=== PATIENT | female | born 1975 | race Caucasian/White ===

== ENCOUNTER 2021-10-24 10:14 | Emergency (ER) | payer OTHER, SELFPAY ==
[2021-10-24] VITALS (16 sets, daily range): BP systolic 146–158; BP diastolic 85–99; PULSE 87–119; RESP 16–20; TEMP 36.7; O2SAT 98–100
--- NOTE | ~2021-10-24 | US_ITS ---
EXAMINATION: US pelvic complete w TV DATE: 10/24/2021 15:18 INDICATION: Right-sided pelvic pain TECHNIQUE: Multiple transabdominal and endovaginal sonographic images of the pelvis were obtained. COMPARISON: None. FINDINGS: The uterus measures 8.1 x 5.4 x 5.9 cm. There is a 1.2 cm nabothian cyst of the cervix. A 1 .9 x 1.8 cm isoechoic mass of the anterior uterine body has the appearance of a subserosal fibroid. T he endometrial complex measures 7 mm. The right ovary measures 2.7 x 1.9 x 1.6 cm. The left ovary estefanía sures 3.5 x 3.2 x 1.8 cm. There is normal vascular flow in the ovaries. There is no free fluid in the pelvis. IMPRESSION: 1. No sonographic correlate for the patient's symptoms. Reviewed, dictated and finalized at location B. 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
--- NOTE | ~2021-10-24 | CT_ITS ---
EXAMINATION: CT abdomen pelvis w con DATE: 10/24/2021 13:05 INDICATION: Right lower quadrant abdominal pain. Nausea. TECHNIQUE: Computed tomography (CT) of the abdomen and pelvis was performed with 100 mL Omnipaque 350 intravenous contrast. Automated exposure control and iterative reconstruction technique were employe d. The dose-length product was 342.40 mGy-cm. COMPARISON: None. FINDINGS: The visualized portions of the lung bases demonstrate mild atelectasis. No pleural effusion . The heart size is normal. No pericardial effusion. The liver, gallbladder, spleen, pancreas, and ri ght adrenal gland are normal. There is a 10 mm mass in left adrenal gland measuring soft tissue atten uation. The right kidney is normal. There is a 10 mm mass of fat in left kidney, consistent with an a ngiomyolipoma. There are no dilated loops of bowel. The appendix is normal. There are no pathological ly enlarged lymph nodes. There is physiologic fluid in the pelvis. There is mild thoracolumbar spondy losis. IMPRESSION: 1. 10 mm left adrenal mass. In the absence of known malignancy, this finding is likely an adenoma. Reviewed, dictated and finalized at location A. 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
[2021-10-24 12:31] LABS: Basophils Absolute Auto 0.1 K/mm3 (0.0-0.1); Basophils Percent Auto 0.9 % (0.2-1.2); Eosinophils Absolute Auto 0.3 K/mm3 (0-0.3); Eosinophils Percent Auto 2.6 % (0-4.4); Hematocrit 37.8 % (37.0-47.0); Hemoglobin 11.6 g/dL (12.0-15.0); Immature Granulocyte Absolute 0.04 K/mm3 (0.00-0.031); Immature Granulocyte Percent A 0.3 % (0-0.5); Lymphocytes Absolute Auto 2.03 K/mm3 (0.9-3.2); Lymphocytes Percent Auto 17.6 % (18.3-44.2); Mean Corpuscular HGB Conc 30.7 g/dl (32-36); Mean Corpuscular Hemoglobin 22.9 pg (26-34); Mean Corpuscular Volume 74.7 fl (80-100); Mean Platelet Volume 8.6 fl (7.4-10.4); Monocytes Absolute Auto 0.8 K/mm3 (0.1-0.6); Monocytes Percent Auto 6.9 % (2.6-8.5); Neutrophils Absolute Auto 8.3 K/mm3 (1.3-6.7); Neutrophils Percent Auto 71.7 % (45.5-73.1); Platelet Count Result 621 k/mm3 (150-375); Red Blood Count 5.06 M/mm3 (4.2-5.4); Red Cell Distribution Width 17.9 % (11.5-14.5); White Blood Count 11.5 K/mm3 (4.5-10.0)
[2021-10-24 12:36] LABS: Add Urine Microscopic? YES; Appearance Urine Clear (Clear); Bilirubin Urine Negative (Negative); Blood Urine Negative (Negative); Color Urine Yellow (Yellow); Glucose Urine UA 3+ mg/dL (Negative); Ketones Urine Trace mg/dL (Negative); Leukocyte Esterase Ur Negative LEU/UL (Negative); Nitrate Urine Negative (Negative); Protein Urine Negative (Negative); RBC Urine 0-2 /hpf (0-2); Squamous Epithelial Cell Urine Rare /hpf (Few); Urobilinogen Urine Negative mg/dL (<2.0); WBC Urine 0-3 /hpf
[2021-10-24 12:40] LABS: Specific Grav Ur 1.036 (1.001-1.035)
[2021-10-24 12:49] LABS: Alanine Aminotransferase 22 U/L (4-35); Albumin Level 5.1 g/dL (3.5-5.1); Alkaline Phosphatase 71 U/L (38-126); Anion Gap 12 mmol/L (8-16); Aspartate Amino Transferase 30 U/L (14-36); Blood Urea Nitrogen 13 mg/dL (7-17); Calcium 11.1 mg/dL (8.4-10.2); Carbon Dioxide 23 mmol/L (22-30); Chloride 105 mmol/L (98-107); Estimated CRCL calculation 105 ml/min; Estimated Glomerular Filt Rate > 60; Glucose 117 mg/dL (65-110); Lipase 79 U/L (23-300); Potassium 3.9 mmol/L (3.4-5.0); Sodium 140 mmol/L (137-145)
[2021-10-24] MEDS: SODIUM CHLORIDE 0.9% IV 1,000 ML 999 ML IV CONT (13:11)
[2021-10-24] MEDS: MORPHINE SULFATE (*CRX) 4 MG/ML INJ IV PUSH (13:12)
[2021-10-24] MEDS: ONDANSETRON INJ 4 MG/2 ML VIAL IV PUSH (13:12)
[2021-10-24] MEDS: KETOROLAC 30 MG/ML VIAL (*BKC) IV PUSH (16:23)
--- NOTE | 2021-10-24 17:30 | ED.GENADULT ---
HPI - General Adult General Chief complaint: Abdominal Pain Stated complaint: abd pain Time Seen by Provider: 10/24/21 12:05 Source: RN notes reviewed History of Present Illness HPI narrative: Patient presents emergency department from home for abdominal pain. Patient states that pain began yesterday is located in the right mid abdomen and does not radiate. Pain is described as sharp and stabbing does not radiate is associated with nausea. She denies any fevers or chills chest pain shortness of breath diarrhea or any other symptoms states she is not taking medication for the symptoms this morning Related Data Home Medications Medication Instructions Recorded Confirmed fluticasone propionate 50 1 spray INTRANASAL DAILY 10/10/20 09/18/21 mcg/actuation nasal spray,suspension vitamin B comp and C no.3 15 mg-10 1 cap PO DAILY 01/24/21 09/18/21 mg-50 mg-5 mg-300 mg capsule aspirin 81 mg tablet,delayed 81 mg PO DAILY 09/18/21 09/18/21 release cetirizine 10 mg capsule 10 mg PO DAILY 09/18/21 09/18/21 cholecalciferol (vitamin D3) 125 125 mcg PO DAILY 09/18/21 09/18/21 mcg (5,000 unit) capsule omeprazole magnesium 20 mg 20 mg PO 4XW tablet 09/18/21 09/18/21 tablet,delayed release Allergies Allergy/AdvReac Type Severity Reaction Status Date / Time No Known Allergies Allergy Mild Unverified 06/24/11 19:52 metoprolol Allergy Unknown Verified 03/08/10 07:35 Review of Systems Review of Systems: Gen.: Denies fevers or chills ENT: Denies congestion Respiratory: Denies shortness of breath or cough CV: Denies chest pain or palpitations GI see HPI denies burning, urgency, frequency or hematuria Musculoskeletal: Denies back pain or muscle pain Neuro: Denies numbness, tingling, weakness or focal weakness Skin: Denies rash Except as documented, all other systems reviewed and negative [facility] Past Medical History Medical History Dyslipidemia Hypertension Primary hyperparathyroidism Type 2 diabetes mellitus with hyperglycemia Family History Family History Mother Family history of coronary artery disease Family history of cardiovascular disease Family history of chronic obstructive pulmonary disease Father Diabetes mellitus Family history of gout Hypertension Family history of chronic obstructive pulmonary disease Other Depression Family history of Alzheimer's disease Family history of alcoholism Family history of hearing loss Family history of obesity Family history of thyroid disease Social History Social History Smoking status: Never smoker Second hand tobacco smoke exposure: No Alcohol intake: current Substance use: never Substance use type: does not use Additional living arrangements comments: ( Charles ) son ( smitha ) and mother 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 No clubbing, cyanosis or edema. NEURO: Awake and alert. Following commands, speech normal, no focal deficits SKIN:: Warm, dry. Normal Color PSYCHIATRIC: Normal affect/mood Course Course Emergency Course: Patient continued to have abdominal pain following morphine we will give Toradol Patient states that they are feeling better at this time. States abdominal pain has
== END 2021-10-24 17:59 | disposition home or self-care (01) ==
PROVIDERS: Emergency Provider Emergency Medicine; PCP Nurse Practitioner
DX: R10.9 Unspecified abdominal pain (principal); I10 Essential (primary) hypertension; E11.9 Type 2 diabetes mellitus without complications; E21.0 Primary hyperparathyroidism
CPT/HCPCS: 36415; 74177; 76830; 76856; 80053; 81001; 81025; 83690; 85025; 96361; 96374; 96375; 99284; J1885; J2270; J2405; J7030; Q9967

== ENCOUNTER 2021-11-02 09:08 | Outpatient (CLI) | payer OTHER, SELFPAY ==
--- NOTE | ~2021-11-02 | US_ITS ---
US abdomen limited INDICATION: Abdomen pain. PROCEDURE: Realtime right upper abdominal ultrasound. COMPARISON: No prior studies for comparison. FINDINGS: The pancreas is normal without focal mass or pancreatic ductal dilation. Liver echotexture is normal without focal mass or intrahepatic biliary dilatation. There is normal directional flow i n the portal vein. The gallbladder is normal without stones, gallbladder wall thickening or pericholecystic fluid. Comm on bile duct measures 4.7 mm. No sonographic Crabtree's sign. IMPRESSION: 1: Normal limited abdominal ultrasound. Reviewed, dictated and finalized at location B.
== END 2021-11-02 09:09 | disposition home or self-care (01) ==
PROVIDERS: PCP Nurse Practitioner; Visit Provider Internal Medicine Endocrinology, Diabetes & Metabolism
DX: R10.11 Right upper quadrant pain (principal)
CPT/HCPCS: 76705

== ENCOUNTER 2024-09-27 15:37 | Emergency (ER) | payer OTHER, SELFPAY ==
[2024-09-27 15:54] VITALS: BP 154/106; PULSE 125; RESP 16; TEMP 36.8; O2SAT 100
--- NOTE | 2024-09-27 17:00 | ED_ITS ---
HPI - URI/Sore Throat General Chief Complaint: Upper Respiratory Infection Stated Complaint: Chest Congestion Time Seen by Provider: 09/27/24 16:55 Source: patient, RN notes reviewed and old records reviewed Mode of arrival: ambulatory Limitations: no limitations History of Present Illness HPI Narrative: 49 year old female who presents to [facility] care with complaints of 3 day history of tickle in throat cough, fatigue, fever of 99.5F, headache, body aches, and chills. States she has been having coughing fits and when she does she has difficulty breathing and her heart races, Patient reports no nausea or vomiting or diarrhea, Patient reports that she has been taking Mucinex and DayQuil for her symptoms. MD elicited complaint: fever (low grade), cough, sore throat and other (headache, body aches, and chills) Onset (ago): day(s) (3) Consistency: constant Pain scale (0-10): 6 Able to tolerate fluids by mouth: Yes Treatments prior to arrival: other (Mucinex and DayQuil) Related Data Home Medications ?Medication ?Instructions ?Recorded ?Confirmed ?Last Taken ?Type omeprazole 20 mg capsule,delayed 20 mg PO DAILY PRN 02/06/22 09/21/24 Unknown History release levonorgestrel (Mirena) 1 device intrauterine ONCE 03/05/23 09/21/24 Unknown History Allergies Allergy/AdvReac Type Severity Reaction Status Date / Time No Known Allergies Allergy Mild Verified 09/27/24 16:00 Review of Systems Review of Systems: CONSTITUTIONAL: Reports malaise, chills, sweats, or fever. EYES: Denies visual changes, redness, or discharge. ENT: Reports rhinorrhea, congestion, sinus pain,no otalgia and scratchy sore throat. CARDIOVASCULAR: Denies chest pain, palpitations, or edema. RESPIRATORY: Reports cough.? Reports dyspnea and heart racing with coughing fits GASTROINTESTINAL: Denies abdominal pain, nausea, vomiting, diarrhea SKIN: Denies rash or itching. MUSCULOSKELETAL:Reports myalgia. NEUROLOGIC: Reports headache. All systems reviewed & are unremarkable except as noted in HPI and below PMFSH Past Medical History Medical History Vaginal high risk HPV DNA test positive Atypical endometrial cells on Pap smear Vitamin D deficiency Perioral dermatitis Hyperlipidemia, unspecified Herpes zoster without complication Goiter GERD with esophagitis Essential (primary) hypertension Cellulitis of toe of left foot Body mass index (BMI) 35 or more (03/23/19) History of HPV infection Adenoma of left adrenal gland Heart palpitations Hypertension Primary hyperparathyroidism Type 2 diabetes mellitus with hyperglycemia Metabolic syndrome Dyslipidemia Hypercalcemia Surgical History Surgical History History of classical section Family History Family History Mother Family history of coronary artery disease Family history of cardiovascular disease Family history of chronic obstructive pulmonary disease Father Diabetes mellitus Family history of gout Hypertension Family history of chronic obstructive pulmonary disease Alcoholism Other Breast cancer Carcinoma of colon Cerebrovascular accident Depression Family history of Alzheimer's disease Family history of alcoholism Family history of hearing loss Family history of obesity Family history of thyroid disease Liver cancer Lung cancer Lymphoma Social History Social History Smoking status: Never smoker Second hand tobacco smoke exposure: No Alcohol intake: current Alcohol use details: rarely Substance use: never Substance use type: does not use Lack of Transportation: No Lack of Food: Never True Current Housing: I Have Housing Concerned About Future Housing: No Difficulty Paying Gas/Electric Bills: No Difficulty Paying for Meds: No Currently Unemployed: No Education: High School Diploma/GED Difficulty w/ Childcare or Family Care: No Living arrangements: with family Additional living arrangements comments: ( Charles ) son ( smitha ) and mother Occupation/Education: occupation 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 There is no relevant family history pertinent to the presenting complaint Exam Narrative: GENERAL: Well-appearing, well-nourished, and in no acute distress. HEAD: Normocephalic EYES: PERRLA, conjunctivae clear ENT: Nares clear, turbinates edematous and erythematous, clear discharge.sinus pressure and headache Mucous membranes moist. TM pearly galindo with dull light reflex bilaterally; no tragal tenderness. Oropharynx erythematous without lesions. Tonsils not enlarged and without exudate, no drooling, no hoarseness, no trismus, uvula midline.post nasal drainage NECK: Supple. No lymphadenopathy CHEST: Clear to auscultation, breath sounds equal. No wheezing, rhonchi, rales, or stridor. No respiratory distress, speaks in full sentences.cough noted and reports some soreness to chest with coughing, SAO2 100% on room air HEART: Regular rate and rhythm. No murmur heard. SKIN: Warm, dry, no rash. NEURO: Alert and oriented x3. PSYCH: Normal mood and affect Course Course Emergency Course: Patient is aware of diagnosis, understands and agrees to treatment plan.? Anticipatory guidance given.? Patient agrees to follow-up as directed and is aware of reasons to seek care at the emergency department. Portions of this record may have been created with voice recognition software Level of Care: Express Care Visit Vital Signs Vital signs: Vital Signs Temperature 36.8 C 09/27/24 15:54 Pulse Rate 125 H 09/27/24 15:54 Respiratory Rate 16 09/27/24 15:54 Blood Pressure 154/106 H 09/27/24 15:54 Pulse Oximetry 100 09/27/24 15:54 Temperature 36.8 C 09/27/24 15:54 Pulse Rate 125 H 09/27/24 15:54 Respiratory Rate 16 09/27/24 15:54 Blood Pressure 154/106 H 09/27/24 15:54 Pulse Oximetry 100 09/27/24 15:54 Oxygen Delivery Room Air 09/27/24 15:56 Reviewed MDM - URI/Sore Throat MDM Narrative Medical decision making narrative: Differential diagnosis considered: Pringle virus, strep pharyngitis, allergic rhinitis, upper respiratory tract infection, sinusitis, rhinosinusitis, nasopharyngitis. viral pharyngitis, otitis media, otitis externa, pneumonia, bronchitis, viral cough syndrome, viral syndrome, and influenza.? Exam findings show no acute concerns or changes; patient is non-toxic appearing and is in no distress.? Patient is appropriate for outpatient treatment and follow-up. Differential Diagnosis Differential diagnosis: Likely upper respiratory infection, viral infection, influenza and other (COVID, acute cough) Medical Records Attestation: I reviewed the patient's medical records. Lab Data Attestation: I reviewed the patient's lab results. Lab results narrative: COVID antigen negative, Influenza A negative, Influenza B negative Labs: Lab Results 09/27/24 Range/Units 17:24 POC Influenza A Ag Negative (Negative) POC Influenza B Ag Negative (Negative) POC SARS CoV-2 Ag Negative (Negative) Critical Care Time Critical Care Time Critical Care Time: No Discharge Plan Discharge Clinical Impression: Upper respiratory infection Qualifiers: URI type: unspecified URI Qualified Code(s): J06.9 - Acute upper respiratory infection, unspecified Cough Qualifiers: Cough type: acute Qualified Code(s): R05.1 - Acute cough Patient Disposition: Home, Self-Care Condition: Stable Instructions: Upper Respiratory Infection (ED), Acute Cough (ED) Additional Instructions: Increase fluids especially juices and water [id number] cough and cold medicine of your choice for your symptoms Zyrtec Claritin or Awilda daily include Coricidin brand decongestant Cough tablets as directed for cough--do not bite, chew or suck on--swallow whole Steroids as directed--take with food heat to the face 20-30 minutes 4-6 times a day for pain Salt water gargles, throat lozenges or throat sprays as desired If your symptoms persist, change or worsen significantly before you can contact your personal physician then please, without delay, go to the emergency department for further evaluation. Follow-up with PCP in 7-10 days or sooner if needed Follow up with PCP soon in regards to your blood pressure which is elevated above threshold for referral. Blood pressure above 120/80 may indicate pre- hypertension. Patient Language: Cuban Prescriptions: New prednisone 20 mg tablet 20 mg PO BID Qty: 10 0RF Rx Instructions: take with food take pm dose by 6 pm No Action Mirena 21 mcg/24 hours (8 yrs) 52 mg intrauterine device 1 device intrauterine ONCE Rx Instructions: Inserted 04/2022 tirzepatide 7.5 mg/0.5 mL pen injector 7.5 mg subcut WEEKLY 30 Days Qty: 2.5 6RF dapagliflozin propanediol [Farxiga] 10 mg tablet 10 mg PO QAM Qty: 90 1RF dexamethasone 1 mg tablet 1 mg PO ONCE Qty: 1 0RF Rx Instructions: Take dexamethasone 1 mg at 11 pm and go for blood test in the morning at 8 am for cortisol omeprazole 20 mg capsule,delayed release(DR/EC) 20 mg PO DAILY PRN (DME) lancing device with lancets [makerSQRTouch Delica Plus Lanc Dev] Kit See Rx Instructions .ROUTE .MEDSUPPLY Qty: 200 1RF Rx Instructions: use twice daily metformin 1,000 mg tablet See Rx Instructions .ROUTE .COMPLEX Qty: 180 3RF Dose Instruction: TAKE 1 TABLET BY MOUTH TWICE DAILY WITH MEALS Rx Instructions: TAKE 1 TABLET BY MOUTH TWICE DAILY WITH MEALS rosuvastatin 40 mg tablet See Rx Instructions .ROUTE .COMPLEX Qty: 90 1RF Dose Instruction: Take 1 tablet by mouth once daily Rx Instructions: Take 1 tablet by mouth once daily lisinopril 20 mg tablet See Rx Instructions .ROUTE .COMPLEX Qty: 90 1RF Dose Instruction: Take 1 tablet by mouth once daily Rx Instructions: Take 1 tablet by mouth once daily Follow-up/Referrals: PHYSICIAN,R&D ENGINEER [Primary Care Provider] - Stand Alone Forms: Work/School Release IP Time of Disposition: 17:13 Quality [place] Coma Scale Eyes: Open Verbal: Oriented and Alert Motor: Follows Commands [place] Coma Total Score: 15
[2024-09-27 17:26] LABS: EDCOVIDSCREEN Negative (Negative); EDINFLUASCREEN Negative (Negative); EDINFLUBSCREEN Negative (Negative)
== END 2024-09-27 17:19 | disposition home or self-care (01) ==
PROVIDERS: Emergency Provider Registered Nurse
DX: J06.9 Acute upper respiratory infection, unspecified (principal); R05.1 Acute cough; E55.9 Vitamin D deficiency, unspecified; K21.9 Gastro-esophageal reflux disease without esophagitis; I10 Essential (primary) hypertension; E11.9 Type 2 diabetes mellitus without complications; Z20.822 Contact with and (suspected) exposure to COVID-19
CPT/HCPCS: 87426; 87804; 99213; G0463